=== PATIENT | male | born 1990 | race African-American/Black ===

== ENCOUNTER 2022-05-14 07:35 | Emergency (ER) | payer OTHER ==
[~2022-05-14] VITALS: Ht 175.3 cm; Wt 77.4 kg
[2022-05-14 07:36] VITALS: BP 127/87
[2022-05-14] MEDS ORDERED: ACETAMINOPHEN 500 MG TAB PO ONE (08:15)
[2022-05-14] MEDS ORDERED: IBUP-1022 PO (10:09)
== END 2022-05-14 10:19 | disposition home or self-care (01) ==
LOC: M ED 07:35
DX: S63.501A Unspecified sprain of right wrist, initial encounter (principal); X50.0XXA Overexertion from strenuous movement or load, initial encounter; Y99.1 Military activity

== ENCOUNTER → 2022-06-16 | Outpatient (CLI) | payer OTHER ==
[~2022-06-16] MED LIST: IBUP-1022 PO
== END ==
LOC: M PLAIMG 06:38
PROVIDERS: ATTEND Physician Assistant
DX: S63.592A Other specified sprain of left wrist, initial encounter (principal); M25.522 Pain in left elbow; Y93.9 Activity, unspecified; Y92.9 Unspecified place or not applicable

== ENCOUNTER → 2022-09-01 | Day surgery (SDC) | payer OTHER ==
[~2022-09-01] VITALS: Ht 175.3 cm; Wt 81.6 kg
[~2022-09-01] MED LIST changes: +ACETAMINOPHEN 1000MG 100ML IV BAG As Ordered ONE; +BACITRACIN OINTMENT 30GM TUBE As Ordered ONE; +BUPIVACAINE HCL 0.25% 30ML VIAL As Ordered ONE; +HYDROMORPHONE HCL 0.5 MG/ 0.5 ML SYRINGE IV PRN; +KETOROLAC 60MG 2ML VIAL As Ordered ONE; +LIDOCAINE 2% 100MG/5ML SDV (FOR ANES.) As Ordered ONE; +LR 1,000 ML IV SCH; +MIDAZOLAM INJ 2MG/2ML VIAL As Ordered ONE; +ONDANSETRON 4MG 2ML VIAL As Ordered ONE; +ONDANSETRON 4MG 2ML VIAL IV PRN; +PERC5TAB12 PO; +ceFAZolin SOD 2 GM in IV 1 EA IV ONE; +fentaNYL 100 MCG/2 ML INJECTION As Ordered ONE; +fentaNYL 100 MCG/2 ML INJECTION IV PRN; +oxyCODONE 5MG TAB PO PRN; +propofoL 200 MG/20 ML VIAL As Ordered ONE
[2022-09-01 11:35] VITALS: BP 141/86
== END | disposition home or self-care (01) ==
LOC: M SDC 07:46
PROVIDERS: ATTEND Orthopaedic Surgery Hand Surgery
DX: M65.9 Synovitis and tenosynovitis, unspecified (principal); M25.532 Pain in left wrist
CPT/HCPCS: 29844; J0131; J0690; J1100; J1885; J2250; J2405; J3010; S0020

== ENCOUNTER → 2022-11-26 | Outpatient (REF) ==
[~2022-11-26] MED LIST changes: -ACETAMINOPHEN 1000MG 100ML IV BAG As Ordered ONE; -BACITRACIN OINTMENT 30GM TUBE As Ordered ONE; -BUPIVACAINE HCL 0.25% 30ML VIAL As Ordered ONE; -HYDROMORPHONE HCL 0.5 MG/ 0.5 ML SYRINGE IV PRN; -KETOROLAC 60MG 2ML VIAL As Ordered ONE; -LIDOCAINE 2% 100MG/5ML SDV (FOR ANES.) As Ordered ONE; -LR 1,000 ML IV SCH; -MIDAZOLAM INJ 2MG/2ML VIAL As Ordered ONE; -ONDANSETRON 4MG 2ML VIAL As Ordered ONE; -ONDANSETRON 4MG 2ML VIAL IV PRN; -ceFAZolin SOD 2 GM in IV 1 EA IV ONE; -fentaNYL 100 MCG/2 ML INJECTION As Ordered ONE; -fentaNYL 100 MCG/2 ML INJECTION IV PRN; -oxyCODONE 5MG TAB PO PRN; -propofoL 200 MG/20 ML VIAL As Ordered ONE
[2022-11-30 23:09] LABS: RUBEOLA IgG ANTIBODY 24.5 AU/mL (Immune >16.4)
== END ==
LOC: M LAB 14:07
PROVIDERS: ATTEND Nurse Practitioner Adult Health
DX: Z00.00 Encounter for general adult medical examination without abnormal findings (principal)

== ENCOUNTER 2023-02-28 13:29 | Emergency (ER) | payer OTHER ==
[~2023-02-28] VITALS: Ht 175.3 cm; Wt 90.7 kg
[~2023-02-28 13:29] MED LIST changes: +IBUP80TA PO; +LIDO5DIS41 TD; +METH-1165 PO
[2023-02-28 13:59] VITALS: BP 139/88; TEMP 98.6; O2SAT 98
[2023-02-28 14:59] LABS: HEMOGLOBIN 15.4 g/dl (13.5-17.5); MEAN CORPUSCULAR HEMOGLOBIN 30.5 pg (27.0-33.0); MEAN CORPUSCULAR HGB CONC 32.8 g/dl (32.0-36.5); MEAN CORPUSCULAR VOLUME 93.1 fl (80.0-96.0); PLATELET COUNT, AUTOMATED 237 10^3/uL (150-450); RED BLOOD COUNT 5.05 10^6/uL (4.30-6.10); WHITE BLOOD COUNT 8.6 10^3/uL (4.0-10.0)
[2023-02-28 15:15] LABS: ETHYL ALCOHOL (ETHANOL) < 0.003 % (0.000-0.010)
[2023-02-28 15:17] LABS: ALBUMIN 4.2 G/DL (3.2-5.2); ALKALINE PHOSPHATASE 94 U/L (46-116); ALT/SGPT 44 U/L (7.0-40); AST/SGOT 22 U/L (<34); BILIRUBIN,DIRECT 0.3 MG/DL (<0.4); BLOOD UREA NITROGEN 15 MG/DL (9-23); CALCIUM LEVEL 9.5 MG/DL (8.5-10.1); CARBON DIOXIDE LEVEL 30 MMOL/L (20-31); CHLORIDE LEVEL 102 MMOL/L (98-107); CREATININE FOR GFR 1.05 MG/DL (0.70-1.30); GLOMERULAR FILTRATION RATE > 60.0 (>60); GLUCOSE, FASTING 88 MG/DL (60-100); POTASSIUM SERUM 3.9 MMOL/L (3.5-5.1); SALICYLATE LEVEL < 3.0 MG/DL (<30); SODIUM LEVEL 141 MMOL/L (136-145); TOTAL PROTEIN 7.8 G/DL (5.7-8.2)
[2023-02-28 15:18] LABS: THYROID STIMULATING HORMONE 0.654 uIU/ML (0.55-4.78)
[2023-02-28 15:24] LABS: AMPHETAMINES LEVEL URINE NEGATIVE (NEGATIVE); BARBITURATES URINE NEGATIVE (NEGATIVE); BENZODIAZEPINES URINE NEGATIVE (NEGATIVE); CANNABINOIDS URINE NEGATIVE (NEGATIVE); COCAINE METABOLITE URINE NEGATIVE (NEGATIVE); METHADONE URINE NEGATIVE (NEGATIVE); OPIATES URINE NEGATIVE (NEGATIVE); PHENCYCLIDINE URINE NEGATIVE (NEGATIVE)
== END 2023-02-28 19:31 | disposition home or self-care (01) ==
LOC: M ED 13:29 → EDBD 13:29 → M ED 19:31
DX: F43.0 Acute stress reaction (principal); F41.1 Generalized anxiety disorder

== ENCOUNTER → 2023-03-07 | Outpatient (CLI) | payer OTHER ==
[2023-03-07 16:26] LABS: APPEARANCE, URINE CLEAR (CLEAR); BACTERIA, URINE AUTO NEGATIVE (NEGATIVE); BILIRUBIN, URINE AUTO NEGATIVE (NEGATIVE); BLOOD, URINE BLOOD NEGATIVE (NEGATIVE); COLOR, URINE YELLOW (YELLOW); GLUCOSE, URINE (UA) AUTO NEGATIVE (NEGATIVE); KETONE, URINE AUTO NEGATIVE (NEGATIVE); LEUKOCYTE ESTERASE, URINE AUTO NEGATIVE (NEGATIVE); MUCUS, URINE SMALL (NEGATIVE); NITRITE, URINE AUTO NEGATIVE (NEGATIVE); PROTEIN, URINE AUTO NEGATIVE (NEGATIVE); RBC, URINE AUTO 0 /HPF (0-3); SPECIFIC GRAVITY URINE AUTO 1.019 (1.002-1.035); SQUAMOUS EPITHELIAL CELL UR AU 0 /HPF (0-6); WBC, URINE AUTO 0 /HPF (0-3)
[2023-03-07 16:55] LABS: HEMATOCRIT 47.7 % (42.0-52.0); HEMOGLOBIN 15.5 g/dl (13.5-17.5); MEAN CORPUSCULAR HEMOGLOBIN 30.6 pg (27.0-33.0); MEAN CORPUSCULAR HGB CONC 32.5 g/dl (32.0-36.5); MEAN CORPUSCULAR VOLUME 94.1 fl (80.0-96.0); PLATELET COUNT, AUTOMATED 247 10^3/uL (150-450); RED BLOOD COUNT 5.07 10^6/uL (4.30-6.10); WHITE BLOOD COUNT 9.1 10^3/uL (4.0-10.0)
== END ==
LOC: M PLAIMG 13:36
PROVIDERS: ATTEND Nurse Practitioner Family
DX: R05.3 Chronic cough (principal)